=== PATIENT | female | born 1980 | race Hispanic/Latino ===

== ENCOUNTER 2018-07-19 13:34 | Emergency (ER) | payer MEDICARE ==
[2018-07-19] MEDS ORDERED: ACETAMINOPHEN 325 MG TAB ONE (14:05)
[2018-07-19 14:36] LABS: BILIRUBIN,URINE Negative (NEGATIVE); COLOR,URINE Yellow (YELLOW); GLUCOSE, URINE (UA) Negative (NEGATIVE); KETONES,URINE Negative (NEGATIVE); LEUKOCYTE ESTERASE ,URINE Moderate (NEGATIVE); NITRATE,URINE Negative (NEGATIVE); OCCULT BLOOD,URINE Negative (NEGATIVE); PROTEIN,URINE Negative (NEGATIVE)
[2018-07-19 14:40] LABS: APPEARANCE,URINE SLIGHTLY CLOUDY (CLEAR)
[2018-07-19 14:44] LABS: BACTERIA,URINE Few /HPF (None Seen); MUCUS,URINE Few LPF (None Seen); RBC,URINE 0-1 /HPF (0-1); SQUAMOUS EPITHELIAL CELL,UR Moderate /HPF (0-2)
== END 2018-07-19 15:34 | disposition home or self-care (01) ==
LOC: EDH 13:34
DX: O23.41 Unspecified infection of urinary tract in pregnancy, first trimester (principal); Z87.891 Personal history of nicotine dependence; Z3A.10 10 weeks gestation of pregnancy
CPT/HCPCS: 81001

== ENCOUNTER 2018-11-14 10:44 | Observation (INO) | payer MEDICARE ==
[2018-11-14 12:58] LABS: APPEARANCE,URINE Cloudy (CLEAR); BILIRUBIN,URINE Negative (NEGATIVE); COLOR,URINE Dark Yellow (YELLOW); GLUCOSE, URINE (UA) Negative (NEGATIVE); KETONES,URINE Negative (NEGATIVE); LEUKOCYTE ESTERASE ,URINE Small (NEGATIVE); NITRATE,URINE Negative (NEGATIVE); OCCULT BLOOD,URINE Negative (NEGATIVE); PROTEIN,URINE Negative (NEGATIVE)
[2018-11-14 13:04] LABS: BACTERIA,URINE Moderate /HPF (None Seen); MUCUS,URINE Few LPF (None Seen); RBC,URINE 0-1 /HPF (0-1); SQUAMOUS EPITHELIAL CELL,UR Many /HPF (0-2)
[2018-11-14 13:07] LABS: AMPHET/METH SCREEN,URINE NEGATIVE (NEGATIVE); BARBITURATE SCREEN, URINE NEGATIVE (NEGATIVE); BENZODIAZEPINES SCREEN,URINE NEGATIVE (NEGATIVE); CANNABINOID SCREEN,URINE NEGATIVE (NEGATIVE); COCAINE SCREEN,URINE NEGATIVE (NEGATIVE); OPIATE SCREEN,URINE NEGATIVE (NEGATIVE); PHENCYCLIDINE SCREEN,URINE NEGATIVE (NEGATIVE)
== END 2018-11-14 13:25 | disposition home or self-care (01) ==
LOC: EDH 10:44 → LDH 11:33
PROVIDERS: ADMIT Obstetrics & Gynecology; ATTEND Obstetrics & Gynecology
DX: O26.892 Other specified pregnancy related conditions, second trimester (principal); R10.9 Unspecified abdominal pain; O09.512 Supervision of elderly primigravida, second trimester; Z3A.27 27 weeks gestation of pregnancy
CPT/HCPCS: 80305; 81001; 99284; G0378 ×2

== ENCOUNTER 2019-07-06 15:55 | Emergency (ER) | payer OTHER, MEDICARE ==
[~2019-07-06 15:55] MED LIST: PREN-196 PO
[2019-07-06 16:58] LABS: BASOPHILS % (AUTO) 0.5 % (0.0-5.0); EOSINOPHILS % (AUTO) 0.7 % (0.0-8.0); HEMATOCRIT 43.9 % (36-48); LYMPHOCYTES % (AUTO) 37.8 % (21.0-51.0); MEAN CORPUSCULAR HGB CONC 34.6 g/dL (32.0-36.0); MEAN CORPUSCULAR VOLUME 89.6 fL (79-99); MONOCYTES % (AUTO) 5.7 % (3.0-13.0); NEUTROPHILS % (AUTO) 55.3 % (40.0-77.0); PLATELET COUNT (AUTO) 299 K/uL (130-400); RED CELL DISTRIBUTION WIDTH 12.8 % (11.0-15.5); WHITE BLOOD COUNT (AUTO) 4.2 K/uL (4.8-10.8)
[2019-07-06 17:05] LABS: CREATININE 0.9 mg/dL (0.5-1.5); POTASSIUM 3.7 mmol/L (3.5-5.1)
[2019-07-06 17:09] LABS: APPEARANCE,URINE Cloudy (CLEAR); BILIRUBIN,URINE Negative (NEGATIVE); COLOR,URINE Yellow (YELLOW); GLUCOSE, URINE (UA) Negative (NEGATIVE); KETONES,URINE Negative (NEGATIVE); LEUKOCYTE ESTERASE ,URINE Moderate (NEGATIVE); NITRATE,URINE Negative (NEGATIVE); OCCULT BLOOD,URINE Negative (NEGATIVE); PROTEIN,URINE Negative (NEGATIVE); UROBILINOGEN,URINE 0.2 mg/dL (0.2-1.0)
[2019-07-06 17:11] LABS: ALBUMIN 4.4 g/dL (3.5-5.0); BILIRUBIN,DIRECT 0.1 mg/dL (0.0-0.3); BILIRUBIN,TOTAL 0.3 mg/dL (0.2-1.0); TOTAL PROTEIN, SERUM 7.6 g/dL (6.0-8.3)
[2019-07-06 17:15] LABS: HCG,QUAL RESULT NEGATIVE (NEGATIVE)
[2019-07-06 17:16] LABS: AMPHET/METH SCREEN,URINE NEGATIVE (NEGATIVE); BARBITURATE SCREEN, URINE NEGATIVE (NEGATIVE); BENZODIAZEPINES SCREEN,URINE POSITIVE (NEGATIVE); CANNABINOID SCREEN,URINE NEGATIVE (NEGATIVE); COCAINE SCREEN,URINE NEGATIVE (NEGATIVE); OPIATE SCREEN,URINE NEGATIVE (NEGATIVE); PHENCYCLIDINE SCREEN,URINE NEGATIVE (NEGATIVE)
[2019-07-06 17:19] LABS: BACTERIA,URINE Few /HPF (None Seen); RBC,URINE 0-1 /HPF (0-1); SQUAMOUS EPITHELIAL CELL,UR Moderate /HPF (0-2)
[2019-07-06 17:23] LABS: MUCUS,URINE Rare LPF (None Seen)
[2019-07-06] MEDS ORDERED: AZITHROMYCIN 250 MG TABLET PO ONE (17:36)
[2019-07-06] MEDS ORDERED: CEFTRIAXONE SODIUM 500 MG VIAL ONE (17:36)
[2019-07-06] MEDS ORDERED: LIDOCAINE HCL-MPF 1% 2ML VIAL ONE (17:37)
[2019-07-06] MEDS ORDERED: ONDANSETRON ODT 4 MG TAB ONE (17:37)
== END 2019-07-06 18:52 | disposition home or self-care (01) ==
LOC: EDH 15:55
DX: N39.0 Urinary tract infection, site not specified (principal); N72 Inflammatory disease of cervix uteri; F32.9 Major depressive disorder, single episode, unspecified; Z88.6 Allergy status to analgesic agent; Z72.0 Tobacco use
CPT/HCPCS: 36415; 80048; 80076; 80305; 81001; 81025; 82550; 83690; 85025; 87077; 87088; 87186; 87486; 87797; 96372; 99283; J0696; J3490

== ENCOUNTER 2021-11-09 17:21 | Emergency (ER) | payer OTHER, MEDICARE ==
[~2021-11-09] VITALS: Ht 165.1 cm; Wt 70.3 kg
[2021-11-09] MEDS ORDERED: 0.9%NACL 1000ML 1,000 ML IV ONE ×2 (17:58→18:00)
[2021-11-09] MEDS ORDERED: LORAZEPAM 2 MG/ML 1 ML VIAL ONE (17:58)
[2021-11-09] MEDS ORDERED: LORAZEPAM 2 MG/ML 1 ML VIAL IVP ONE (18:00)
[2021-11-09 18:04] LABS: APPEARANCE,URINE CLOUDY (CLEAR); BILIRUBIN,URINE NEGATIVE (NEGATIVE); COLOR,URINE YELLOW (YELLOW); GLUCOSE, URINE (UA) NEGATIVE (NEGATIVE); KETONES,URINE 100 mg/dL (NEGATIVE); LEUKOCYTE ESTERASE ,URINE 250 Leu/uL (NEGATIVE); NITRATE,URINE NEGATIVE (NEGATIVE); OCCULT BLOOD,URINE NEGATIVE (NEGATIVE); PH,URINE 6.5 (5.0-8.0); PROTEIN,URINE 70 mg/dL (NEGATIVE)
[2021-11-09 18:12] LABS: BACTERIA,URINE FEW /HPF (None Seen); MUCUS,URINE RARE LPF (None Seen); SQUAMOUS EPITHELIAL CELL,UR MOD /HPF (0-2); WBC,URINE 26-50 /HPF (0-1)
[2021-11-09 18:13] LABS: AMPHET/METH SCREEN,URINE NEGATIVE (NEGATIVE); BARBITURATE SCREEN, URINE NEGATIVE (NEGATIVE); BENZODIAZEPINES SCREEN,URINE NEGATIVE (NEGATIVE); CANNABINOID SCREEN,URINE POSITIVE (NEGATIVE); COCAINE SCREEN,URINE POSITIVE (NEGATIVE); PHENCYCLIDINE SCREEN,URINE NEGATIVE (NEGATIVE)
[2021-11-09] MEDS ORDERED: CEFTRIAXONE 1G VIAL IVP ONE (18:30)
[2021-11-09] MEDS ORDERED: CEFTRIAXONE 1G VIAL ONE (18:39)
[2021-11-09 19:24] VITALS: BP 121/77
[2021-11-09] MEDS ORDERED: CEPH500T PO (19:44)
== END 2021-11-09 19:58 | disposition home or self-care (01) ==
LOC: EDH 17:21
DX: N39.0 Urinary tract infection, site not specified (principal); F14.10 Cocaine abuse, uncomplicated; F12.10 Cannabis abuse, uncomplicated; F41.9 Anxiety disorder, unspecified; F31.9 Bipolar disorder, unspecified
CPT/HCPCS: 99284; 96374; 96361; 96375; 80305; 87088; 81001; J7030; J0696; J2060

== ENCOUNTER 2023-07-29 08:36 | Day surgery (SDC) | payer OTHER, MEDICARE ==
[2023-07-29] VITALS (12 sets, daily range): BP systolic 108–125; BP diastolic 65–86; PULSE 71–100; RESP 15–17
[~2023-07-29] VITALS: Ht 165.1 cm; Wt 81.6 kg
[2023-07-29] MEDS ORDERED: ALBU90AE3 IH (10:11)
[2023-07-29] MEDS ORDERED: ALPR0.5T8 PO (10:11)
[2023-07-29] MEDS: 0.9%NACL 1000ML 1,000 ML IV ONE (10:14)
[2023-07-29] MEDS ORDERED: LIDOCAINE HCL 1% 20 ML VIAL ONE (11:29)
[2023-07-29] MEDS ORDERED: PROPOFOL 10 MG/ML 20ML VIAL IV ONE ×2 (11:29→11:43)
== END 2023-07-29 12:45 | disposition home or self-care (01) ==
LOC: ENDO 08:36 → DAH 08:36 → ENDO 12:45
PROVIDERS: ATTEND Internal Medicine Gastroenterology
DX: R85.0 Abnormal level of enzymes in specimens from digestive organs and abdominal cavity (principal); R93.5 Abnormal findings on diagnostic imaging of other abdominal regions, including retroperitoneum; K92.1 Melena; R10.12 Left upper quadrant pain; K44.9 Diaphragmatic hernia without obstruction or gangrene; K29.70 Gastritis, unspecified, without bleeding; K86.89 Other specified diseases of pancreas; R19.7 Diarrhea, unspecified; K59.04 Chronic idiopathic constipation; F41.9 Anxiety disorder, unspecified; F32.A Depression, unspecified; J45.909 Unspecified asthma, uncomplicated; Z79.899 Other long term (current) drug therapy; Z86.010 Personal history of colon polyps; Z68.27 Body mass index [BMI] 27.0-27.9, adult
CPT/HCPCS: 81025; 43237; 43239; J7030 ×2; J2704 ×2; A4620; A4215; A4223; A7002; A4222; A4221; A4663; A4606; J3490